=== PATIENT | male | born 1980 | race African-American/Black ===

== ENCOUNTER 2019-03-13 17:28 | Observation (INO) | payer SELFPAY ==
[~2019-03-13] VITALS: Ht 175.3 cm; Wt 77.3 kg
[2019-03-13 18:03] LABS: ALBUMIN 3.6 g/dL (3.4-5.0); ALKALINE PHOSPHATASE 98 U/L (46-116); ALT (SGPT) 41 U/L (10-68); BASOPHILS 0.4 % (0-2); BILIRUBIN - TOTAL 0.28 mg/dL (0.2-1.3); CALC OSMOLALITY 275 mosm/kg (275-300); CALCIUM 8.8 mg/dL (8.5-10.1); CARBON DIOXIDE 27.5 mmol/L (21.0-32.0); CHLORIDE - SERUM 104 mmol/L (98-107); CREATININE - SERUM 1.3 mg/dL (0.6-1.3); EOSINOPHILS 3.2 % (0-7); GLUCOSE 86 mg/dL (74-106); HEMATOCRIT 40.7 % (42.0-54.0); HEMOGLOBIN 14.2 g/dL (13.5-17.5); IMMATURE GRANULOCYTES 0.2 % (0-5); LYMPHOCYTES 32.3 % (15-50); MCH 28.9 pg (26.0-34.0); MCHC 34.9 g/dL (31.0-37.0); MCV 82.9 fL (80.0-100.0); MEAN PLATELET VOLUME 9.4 fL (7.4-10.4); MONOCYTES 7.8 % (2-11); NEUTROPHILS 56.1 % (40-80); PLATELET COUNT 265 10x3/uL (130-400); POTASSIUM - SERUM 3.7 mmol/L (3.5-5.1); RBC 4.91 10x6/uL (4.20-6.10); RDW 14.8 % (11.5-14.5); SODIUM 139 mmol/L (136-145); UREA NITROGEN 11 mg/dL (7-18); WBC 8.3 10x3/uL (4.8-10.8); eGFR NON AFRICAN AMERICAN 66 mL/min (90-120)
[2019-03-13 18:07] LABS: AMYLASE - SERUM 64 U/L (25-115); LIPASE 126 U/L (73-393)
[2019-03-13 18:11] LABS: TROPONIN-I < 0.017 ng/mL (0.000-0.060)
--- NOTE | 2019-03-13 19:37 | NUR ---
URINE COLLECTED AND SENT TO LAB.
[2019-03-13 20:12] LABS: APPEARANCE CLEAR (CLEAR); BILIRUBIN NEGATIVE (NEGATIVE); COLOR YELLOW (YELLOW); GLUCOSE NEGATIVE (NEGATIVE); KETONE NEGATIVE (NEGATIVE); NITRITE NEGATIVE (NEGATIVE); PROTEIN NEGATIVE (NEGATIVE); UROBILINOGEN NORMAL (NORMAL)
--- NOTE | 2019-03-13 22:30 | NUR ---
RECIEVED TO FLOOR, ACCOMPANIED BY S/O AND STAFF. A&O X 4. AMBULATORY. INFORMED OF NPO STATUS, VERBALIZED UNDERSTANDING. DENIES NEEDS AT THIS TIME. WILL CONTINUE TO MONITOR.
--- NOTE | 2019-03-13 22:30 | NUR ---
RECEIVED FROM ER ACCOMPANIED BY STAFF AND GIRLFRIEND. ALERT AND ORIENTED X4. ABDOMEN FLAT AND NON-TENDER. BOWEL SOUNDS HYPOACTIVE X4 QUAD. NO COMPLAINTS OF PAIN OR DISCOMFORT. DENIES NEEDS AT THIS TIME. CONTINUE WITH PLAN OF CARE.
[2019-03-13 22:40] VITALS: BP 114/65; BMI 25.1
[2019-03-14 00:47] VITALS: BP 116/65
[2019-03-14 05:58] LABS: BASOPHILS 0.6 % (0-2); HEMATOCRIT 40.5 % (42.0-54.0); IMMATURE GRANULOCYTES 0.3 % (0-5); LYMPHOCYTES 30.4 % (15-50); MCH 28.7 pg (26.0-34.0); MCHC 34.6 g/dL (31.0-37.0); MEAN PLATELET VOLUME 9.3 fL (7.4-10.4); MONOCYTES 9.7 % (2-11); PLATELET COUNT 269 10x3/uL (130-400); RBC 4.88 10x6/uL (4.20-6.10); RDW 14.7 % (11.5-14.5); WBC 6.9 10x3/uL (4.8-10.8)
[2019-03-14 06:13] LABS: ANION GAP 10.5 mmol/L (8-16); CALCIUM 8.4 mg/dL (8.5-10.1); CARBON DIOXIDE 27.3 mmol/L (21.0-32.0); CREATININE - SERUM 1.3 mg/dL (0.6-1.3); POTASSIUM - SERUM 3.8 mmol/L (3.5-5.1)
--- NOTE | 2019-03-14 07:30 | NUR ---
PT RESTING IN BED, ALERT AND ORIENTED. NO C/O PAIN. NO S/S OF ACUTE DISTRESS NOTED. IV TO LEFT AC, LR INFUSING @ 125ML/HR. SITE PATENT WITHOUT REDNESS OR SWELLING. UP AD ISABEL. SCHEDULED FOR AN APPENDECTOMY TODAY. PT DENIES ANY NEEDS AT THIS TIME. CALL LIGHT IN REACH. WILL CONTINUE TO MONITOR.
[2019-03-14 08:31] VITALS: BP 124/76
[2019-03-14 09:19] VITALS: Ht 175.3 cm; Wt 77.3 kg
[2019-03-14 13:08] VITALS: BP 129/70
--- NOTE | 2019-03-14 15:08 | NUR ---
I have reviewed this patient and I concur with the Shift Assessment completed by the Licensed Practical Nurse today this shift.
[2019-03-14] MEDS ORDERED: HYDROCODON-ACE1 EAC7 PO (15:17)
[2019-03-14] MEDS ORDERED: AUGMENTIN 875-11 TAB PO (15:17)
--- NOTE | 2019-03-14 15:44 | NUR ---
REPORT TAKEN FROM VICKY SAPP RN. PATIENT CARE ASSUMED AT THIS TIME.
[2019-03-14 16:35] VITALS: BP 109/64
--- NOTE | 2019-03-14 18:12 | NUR ---
PT DISCHARGED HOME WITH VIA WHEELCHAIR. NO C/O PAIN. NO S/S OF ACUTE DISTRESS NOTED. DISCONTINUED IV, CATHETER TIP INTACT. WENT OVER DISCHARGE INSTRUCTIONS WITH PT, PT VERBALIZED UNDERSTANDING. PT DENIES ANY NEEDS.
--- NOTE | 2019-03-15 16:52 | MORECARE ---
CASE MANAGEMENT DISCHARGE SUMMARY PATIENT: KENDY GARCIA UNIT: [id number] ADM DATE: 03/13/19 AGE: 38 : 82 SEX: M ROOM/BED: D.2232 AUTHOR: YUNG DIANE PHYSICIAN: REFERRING PHYSICIAN: PHOENIX ARDON MD DATE OF SERVICE: 03/15/19 Discharge Plan Patient Name: KENDY GARCIA [facility] [facility] 1980 Planned Disposition: Home Anticipated Discharge Date: Discharge Date: 03/14/2019 Expected LOS: 0 Initial Reviewer: [email or web address] Initial Review Date: 03/15/2019 Generated: 03/15/19 5:52 pm Patient Name: KENDY GARCIA Page [id number] at 1652 All edits/amendments must be made on the electronic document DICTATION DATE: 03/15/191650 FASHION PHOTOGRAPHER: DA 03/15/191650 RPT#: [id number] DC DATE:03/14/19 STATUS: DIS IN [facility] [address] [place] [address] END OF REPORT
== END 2019-03-14 18:14 | disposition home or self-care (01) ==
LOC: D.ER 17:28 → D.MS 21:19 → OBSVTIME 21:19 → D.MS 03-14 18:14
PROVIDERS: Family Medicine; ADMIT Surgery; ATTEND Surgery
DX: K35.30 Acute appendicitis with localized peritonitis, without perforation or gangrene (principal)